=== PATIENT | male | born 1960 | race Native Hawaiian/Other Pacific Islander ===

== ENCOUNTER 2018-06-03 13:47 | Inpatient (IN) | payer OTHER | END 2018-07-01 09:41 | disposition still patient (30) | LOC: PAVC 13:47 | PROVIDERS: ADMIT Internal Medicine ==

== ENCOUNTER 2018-06-04 06:24 | Outpatient (CLI) | payer OTHER ==
[2018-06-04 07:03] LABS: PLATELET COUNT 272 K/uL (142-355)
[2018-06-04 07:18] LABS: POTASSIUM 4.6 mmol/L (3.6-5.2)
== END 2018-06-04 21:12 | disposition home or self-care (01) ==
LOC: LAB 06:24
PROVIDERS: Internal Medicine
DX: D64.9 Anemia, unspecified (principal); E11.9 Type 2 diabetes mellitus without complications; I10 Essential (primary) hypertension; E03.9 Hypothyroidism, unspecified
CPT/HCPCS: 80053; 80061; 82607; 83036; 84443; 85027

== ENCOUNTER 2018-07-01 10:13 | Inpatient (IN) | payer OTHER | END 2018-08-01 08:42 | disposition still patient (30) | LOC: PAVC 10:13 | PROVIDERS: ADMIT Internal Medicine ==

== ENCOUNTER 2018-08-01 09:14 | Inpatient (IN) | payer OTHER | END 2018-08-29 13:53 | disposition still patient (30) | LOC: PAVC 09:14 | PROVIDERS: ADMIT Internal Medicine ==

== ENCOUNTER 2018-08-16 20:58 | Outpatient (CLI) | payer OTHER | END 2018-08-16 23:59 | disposition home or self-care (01) | LOC: LAB 20:58 | DX: Z13.9 Encounter for screening, unspecified (principal) | CPT/HCPCS: 87081 ==

== ENCOUNTER 2018-08-29 14:06 | Inpatient (IN) | payer OTHER | END 2018-09-29 13:05 | disposition still patient (30) | LOC: PAVC 14:06 | PROVIDERS: ADMIT Internal Medicine ==

== ENCOUNTER 2018-09-29 13:12 | Inpatient (IN) | payer OTHER | END 2018-10-29 15:56 | disposition still patient (30) | LOC: PAVC 13:12 | PROVIDERS: ADMIT Internal Medicine ==

== ENCOUNTER 2018-10-14 21:53 | Outpatient (CLI) | payer OTHER | END 2018-10-14 23:11 | disposition home or self-care (01) | LOC: LAB 21:53 | DX: R97.20 Elevated prostate specific antigen [PSA] (principal) | CPT/HCPCS: 84153 ==

== ENCOUNTER 2018-10-29 16:32 | Inpatient (IN) | payer OTHER | END 2018-11-29 09:42 | disposition still patient (30) | LOC: PAVC 16:32 | PROVIDERS: ADMIT Internal Medicine | DX: Z51.89 Encounter for other specified aftercare (principal) | CPT/HCPCS: 90853 ==

== ENCOUNTER 2018-11-29 09:47 | Inpatient (IN) | payer OTHER | END 2018-12-29 13:50 | disposition still patient (30) | LOC: PAVC 09:47 | PROVIDERS: ADMIT Internal Medicine ==

== ENCOUNTER 2018-12-04 04:34 | Outpatient (CLI) | payer OTHER ==
[2018-12-04 05:30] LABS: PLATELET COUNT 249 K/uL (142-355)
[2018-12-04 05:47] LABS: POTASSIUM 5.2 mmol/L (3.6-5.2)
== END 2018-12-04 23:41 | disposition home or self-care (01) ==
LOC: LAB 04:34 → LABW 04:34
PROVIDERS: Internal Medicine
DX: I11.0 Hypertensive heart disease with heart failure (principal); I50.9 Heart failure, unspecified; E11.9 Type 2 diabetes mellitus without complications
CPT/HCPCS: 80053; 80061; 83036; 85027

== ENCOUNTER 2018-12-29 14:02 | Inpatient (IN) | payer OTHER | END 2019-01-29 12:34 | disposition still patient (30) | LOC: PAVC 14:02 | PROVIDERS: ADMIT Internal Medicine ==

== ENCOUNTER 2019-01-29 12:46 | Inpatient (IN) | payer OTHER | END 2019-03-01 17:19 | disposition still patient (30) | LOC: PAVC 12:46 | PROVIDERS: ADMIT Internal Medicine ==

== ENCOUNTER 2019-03-01 17:24 | Inpatient (IN) | payer OTHER | END 2019-03-31 13:00 | disposition still patient (30) | LOC: PAVC 17:24 | PROVIDERS: ADMIT Internal Medicine ==

== ENCOUNTER 2019-03-03 09:15 | Outpatient (CLI) | payer OTHER | END 2019-03-03 22:51 | disposition home or self-care (01) | LOC: LAB 09:15 | DX: R73.09 Other abnormal glucose (principal) | CPT/HCPCS: 83036 ==

== ENCOUNTER 2019-03-31 13:08 | Inpatient (IN) | payer OTHER | END 2019-05-01 12:20 | disposition still patient (30) | LOC: PAVC 13:08 | PROVIDERS: ADMIT Internal Medicine ==

== ENCOUNTER 2019-05-01 13:59 | Inpatient (IN) | payer OTHER | END 2019-05-31 08:00 | disposition still patient (30) | LOC: PAVC 13:59 | PROVIDERS: ADMIT Internal Medicine ==

== ENCOUNTER 2019-05-31 11:00 | Inpatient (IN) | payer OTHER | END 2019-07-01 09:28 | disposition still patient (30) | LOC: PAVC 11:00 | PROVIDERS: ADMIT Internal Medicine ==

== ENCOUNTER 2019-06-01 13:10 | Outpatient (CLI) | payer OTHER ==
[2019-06-01 14:12] LABS: PLATELET COUNT 247 K/uL (142-355)
== END 2019-06-01 20:46 | disposition home or self-care (01) ==
LOC: LAB 13:10
PROVIDERS: Internal Medicine
DX: E11.9 Type 2 diabetes mellitus without complications (principal); E78.49 Other hyperlipidemia; D50.8 Other iron deficiency anemias
CPT/HCPCS: 80053; 80061; 83036; 85027

== ENCOUNTER 2019-07-01 09:45 | Inpatient (IN) | payer OTHER | END 2019-08-01 10:44 | disposition still patient (30) | LOC: PAVC 09:45 | PROVIDERS: ADMIT Internal Medicine ==

== ENCOUNTER 2019-08-01 11:04 | Inpatient (IN) | payer OTHER | END 2019-08-30 14:09 | disposition still patient (30) | LOC: PAVC 11:04 | PROVIDERS: ADMIT Internal Medicine ==

== ENCOUNTER 2019-08-30 14:27 | Inpatient (IN) | payer OTHER | END 2019-09-30 11:34 | disposition still patient (30) | LOC: PAVC 14:27 | PROVIDERS: ADMIT Internal Medicine ==

== ENCOUNTER 2019-08-31 05:45 | Outpatient (CLI) | payer OTHER | END 2019-08-31 19:06 | disposition home or self-care (01) | LOC: LAB 05:45 | DX: E11.9 Type 2 diabetes mellitus without complications (principal) | CPT/HCPCS: 83036 ==

== ENCOUNTER 2019-09-30 12:00 | Inpatient (IN) | payer OTHER | END 2019-10-30 11:20 | disposition still patient (30) | LOC: PAVC 12:00 | PROVIDERS: ADMIT Internal Medicine ==

== ENCOUNTER 2019-10-30 11:43 | Inpatient (IN) | payer OTHER | END 2019-11-30 11:19 | disposition still patient (30) | LOC: PAVC 11:43 | PROVIDERS: ADMIT Internal Medicine ==

== ENCOUNTER 2019-11-20 18:43 | Outpatient (CLI) | payer OTHER | END 2019-11-20 23:09 | disposition home or self-care (01) | LOC: LAB 18:43 | DX: U07.1 COVID-19 (principal) ==

== ENCOUNTER 2019-11-20 21:14 | Outpatient (CLI) | payer OTHER ==
[2019-11-20 21:25] LABS: PLATELET COUNT 220 K/uL (142-355)
[2019-11-20 21:34] LABS: POTASSIUM 4.2 mmol/L (3.6-5.2)
== END 2019-11-20 23:09 | disposition home or self-care (01) ==
LOC: LAB 21:14
PROVIDERS: Internal Medicine
DX: U07.1 COVID-19 (principal); Z79.899 Other long term (current) drug therapy
CPT/HCPCS: 80053; 85027

== ENCOUNTER 2019-11-30 11:30 | Inpatient (IN) | payer OTHER | END 2019-12-30 11:54 | disposition still patient (30) | LOC: PAVC 11:30 | PROVIDERS: ADMIT Internal Medicine | CPT/HCPCS: 87635; U0002 ==

== ENCOUNTER 2019-12-01 03:33 | Outpatient (CLI) | payer OTHER ==
[2019-12-01 06:05] LABS: PLATELET COUNT 243 K/uL (142-355)
== END 2019-12-01 19:04 | disposition home or self-care (01) ==
LOC: LAB 03:33
PROVIDERS: Internal Medicine
DX: E11.9 Type 2 diabetes mellitus without complications (principal); E78.49 Other hyperlipidemia; I10 Essential (primary) hypertension
CPT/HCPCS: 80053; 80061; 83036; 85027

== ENCOUNTER 2019-12-30 12:00 | Inpatient (IN) | payer OTHER | END 2020-01-30 10:11 | disposition still patient (30) | LOC: PAVC 12:00 | PROVIDERS: ADMIT Internal Medicine ==

== ENCOUNTER 2020-01-30 10:19 | Inpatient (IN) | payer OTHER | END 2020-03-01 13:59 | disposition still patient (30) | LOC: PAVC 10:19 | PROVIDERS: ADMIT Internal Medicine ==

== ENCOUNTER 2020-03-01 14:11 | Inpatient (IN) | payer OTHER | END 2020-03-31 14:07 | disposition still patient (30) | LOC: PAVC 14:11 | PROVIDERS: ADMIT Internal Medicine ==

== ENCOUNTER 2020-03-02 06:53 | Outpatient (CLI) | payer OTHER | END 2020-03-02 23:53 | disposition home or self-care (01) | LOC: LAB 06:53 | DX: E11.9 Type 2 diabetes mellitus without complications (principal); N40.0 Benign prostatic hyperplasia without lower urinary tract symptoms | CPT/HCPCS: 83036; 84153 ==

== ENCOUNTER 2020-03-31 14:19 | Inpatient (IN) | payer OTHER | END 2020-04-06 16:00 | LOC: PAVC 14:19 | PROVIDERS: ADMIT Internal Medicine ==